=== PATIENT | male | born 1985 | race Caucasian/White ===

== ENCOUNTER 2022-12-02 01:19 | Emergency (ER) | payer BC, SELFPAY ==
[2022-12-02 01:21] VITALS: BP 156/102; PULSE 75; RESP 18; TEMP 36.2; O2SAT 98; BMI 25.8
[2022-12-02 02:00] VITALS: BP 155/98; PULSE 82; RESP 16; TEMP 36.6; O2SAT 97
== END 2022-12-02 03:53 | disposition left against medical advice (07) ==
PROVIDERS: Emergency Provider Emergency Medicine
DX: M54.50 Low back pain, unspecified (principal); Z79.899 Other long term (current) drug therapy
CPT/HCPCS: 99283